=== PATIENT | male | born 1990 | race Hispanic/Latino ===

== ENCOUNTER 2017-04-30 15:22 | Emergency (ER) | payer BC ==
[2017-04-30] MEDS ORDERED: DEXAMETHASONE SOD PHOSPHATE 10MG/ML 1ML VIAL ONE (15:36)
[2017-04-30] MEDS ORDERED: KETOROLAC TROMETHAMINE 60 MG/2 ML VIAL ONE (15:37)
[2017-04-30] MEDS ORDERED: ORPHENADRINE CITRATE 30 MG/ML ML ONE (15:37)
== END 2017-04-30 16:19 | disposition home or self-care (01) ==
LOC: EDH 15:22
DX: S23.3XXA Sprain of ligaments of thoracic spine, initial encounter (principal); X50.0XXA Overexertion from strenuous movement or load, initial encounter; Y93.89 Activity, other specified; Y92.89 Other specified places as the place of occurrence of the external cause; Y99.8 Other external cause status
CPT/HCPCS: 96372 ×3; 99284; J1100; J1885; J2360